=== PATIENT | female | born 1950 | race Caucasian/White ===

== ENCOUNTER → 2019-02-25 | Day surgery (SDC) | payer MEDICARE ==
[~2019-02-25] MED LIST: ASPIRIN81 MG PO; ATENOLOL50 MG PO; BALANCED SALT SOLN (OPTH) 15 ML BTL IO ONE; CALCIUM 500+D1 EACH PO; DAILY VITAMIN1 EAC3 PO; FENTANYL CITRATE/PF 100MCG/2 ML INJ ONE; GLIMEPIRIDE2 MG PO; LASIX40 MG PO; LIDOCAINE 2% /EPINEPHRINE 20 ML SDV INJ ONE; LOSARTAN POTASS25 MG PO; MELOXICAM7.5 MG PO; METFORMIN HCL500 MG PO; MIDAZOLAM HCL 2 MG/2 ML VIAL ONE; MYRBETRIQ50 MG PO; NEOMYCIN/POLYMYXIN/DEX (OPTH) 3.5 GM TUBE ONE; POTASSIUM CHLO20 ME1; POVIDONE IODINE 5% (OPTH) 30 ML BTL ONE; PROPOFOL IV EMULSION 10 MG/ML 20 ML VIAL ONE; SYNTHROID100 MCG PO; TOVIAZ8 MG PO; ULTRACET TABLE1 EACH PO; VICTOZA 2-0.6 MG/0.1 SC; VITAMIN B-121000 MCG PO; VITAMIN D1000 UNI1 PO
--- OUTSIDE RECORDS SUMMARY | 2019-02-25 09:49 | XMS REPORT ---
Author Author [facility] Address Unknown Phone Unavailable Care Team Providers Care Hazardous Materials Waste Technician Name Role Phone CAO, L ROMELIA Unavailable Unavailable Problems This patient has no known problems. Allergies, Adverse Reactions, Alerts This patient has no known allergies or adverse reactions. Medications This patient has no known medications. Results Test Description Test Time Test Comments Text Results Atomic Results Result Comments SCR MAMM BILATERAL YE CAD DIGITAL 2018-05-22 09:37:53 - SCR MAMM BILATERAL YE CAD DIGITALBILATERAL DIGITAL SCREENING MAMMOGRAM 3D/2D WITH CAD: 05/17/2018CLINICAL: Asymptomatic. Digital breast tomosynthesis was performed in addition to routine CC and MLO views. Current mammographic images were evaluated by either a [employer] M-Vu or a [employer] ImageChecker CAD (computer aided detection system). Comparison is made to exams dated 03/03/2016 mammogram, mammogram, and 02/18/2015 mammogram - [facility]. There are scattered fibroglandular tissues in both breasts. No suspicious mass, architectural distortion, malignant type calcification, or lymph node abnormality detected. Breast architecture is stable compared to prior exams.IMPRESSION: NEGATIVEThere is no mammographic evidence of malignancy. Resume annual screening mammography in one year. Kalyn Moraes M.D. ar/penrad:05/22/2018 09:37:53 Horse Buyer: Tracy Her , [facility] sent: BIRADS 1-2 Normal Mammogram BI-RADS: [address] CERVICAL SPINE WO [place] [id number] Patient Name: PRIYANKA SUAREZ MR #: [id number] : 1950 Age/Sex: 66/F Req #: [id number] [facility] Physician: Ordered by: ROMELIA STINSON CUTTER IN Report #: [id number] Location: Room/Bed: Procedure: [id number] CT/CT CERVICAL SPINE WO Exam Date: 05/02/17 Exam Time: 2053 REPORT STATUS: Signed Exams: Head and cervical spine CTs without IV contrast History: Trauma, fall, forehead laceration Comparison studies: None Technique: Axial images were obtained from the brain and cervical spine. Coronal and sagittal images reconstructed from the axial data. Intravenous contrast: None Findings: Head CT: Scalp: Left supraorbital laceration and hematoma with associated subcutaneous emphysema. No hyperdense foreign body. Additional small left lateral frontal soft tissue hematoma. Bones: No fractures, blastic or lytic lesions. Extra-axial spaces: No masses. No fluid collections. Brain sulci: Mildly prominent age appropriate. Ventricles: Normal in size and configuration. No hydrocephalus. Parenchyma: A few scattered hypodensities in the supratentorial white matter are nonsp ecific but most compatible with chronic small vessel ischemic changes. No mass, acute hemorrhage or acute or chronic cortical vascular insults. Sellar/suprasellar region: No abnormalities. Craniocervical junction: The foramen magnum is patent. No Chiari one malformation. Cervical spine CT: Fractures: None. Soft tissues: No gross abnormalities. Atlantoaxial articulation: Intact. Alignment: Mild cervical kyphosis at C5-C6. Minimal anterolisthesis of C4 on C5, C5-C6 and C7 on T1 are most likely degenerative. Cervicomedullary junction: No abnormalities. The foramen magnum is patent. Vertebrae: No infection or neoplasm. Degenerative changes: C2- C3: Mildly degenerated disc. Mild left foraminal stenosis due to uncovertebral moderate left facet arthrosis. Mild right facet arthrosis. No significant canal stenosis. C3-C4: Mildly degenerated disc. Mild canal stenosis due to a disc ossify convex and thickened ligamenta flava. Severe left foraminal stenosis due to uncovertebral arthrosis and severe left facet arthrosis. Mild right facet arthrosis. C4-C5: Mildly degenerated disc. Severe right and moderate left foraminal stenosis due to uncovertebral arthrosis and severe bilateral facet arthrosis. No significant canal stenosis. C5-C6: Moderately degenerated disc. Disc osteophyte complex does not result in canal stenosis. Mild left greater than right foraminal stenosis due to uncovertebral arthrosis and moderate bilateral facet arthrosis. The facets are fused. C6-C7: Moderately degenerated disc. Moderate bilateral foraminal stenosis due to uncovertebral and facet arthrosis. Patent canal. C7-T1: Moderately degenerated disc. Moderate bilateral facet arthrosis. Patent canal and foramina. T1-T2: Mildly degenerated disc. Patent canal and foramina. Incidental findings: Atherosclerotic calcifications in the carotid siphons and left intradural vertebral artery. IMPRESSION: Head CT: 1. Left supraorbital soft tissue hematoma and laceration and additional small left lateral frontal soft tissue hematoma without underlying fracture or retained hyperdense foreign body. 2. No acute intracranial abnormalities. 3. Mild chronic supratentorial microvascular ischemic changes. Cervical spine CT: 1. No cervical spine fracture or acute subluxation. 2. Degenerative changes with multilevel disc degeneration, foraminal stenosis and advanced facet arthrosis. 3. Cannot adequately evaluate ligament, spinal cord and or vascular abnormalities on the basis of this examination. Signed by: Dr. Lucrecia Shaw M.D. on 05/02/2017 9:22 PM Dictated By: LUCRECIA SHAW MD 21 Transcribed By: MICHEL on 05/02/172121 COPY TO: ROMELIA STINSON NP CT BRAIN WO [place] [address] Patient Name: PRIYANKA SUAREZ MR #: [id number] : 1950 Age/Sex: 66/F Req #: [id number] Physician: Ordered by: ROMELIA STINSON NP Report #: [id number] Location: ER Room/Bed: Procedure: [id number] CT/CT BRAIN WO Exam Date: 05/02/17 Exam Time: 2053 REPORT STATUS: Signed Exams: Head and cervical spine CTs without IV contrast History: Trauma, fall, forehead laceration Comparison studies: None Technique: Axial images were obtained from the brain and cervical spine. Coronal and sagittal images reconstructed from the axial data. Intravenous contrast: None Findings: Head CT: Scalp: Left supraorbital laceration and hematoma with associated subcutaneous emphysema. No hyperdense foreign body. Additional small left lateral frontal soft tissue hematoma. Bones: No fractures, blastic or lytic lesions. Extra-axial spaces: No masses. No fluid collections. Brain sulci: Mildly prominent age appropriate. Ventricles: Normal in size and configuration. No hydrocephalus. Parenchyma: A few scattered hypodensities in the supratentorial white matter are nonspecific but most compatible with chronic small vessel ischemic changes. No mass, acute hemorrhage or acute or chronic cortical vascular insults. Sellar/suprasellar region: No abnormalities. Craniocervical junction: The foramen magnum is patent. No Chiari one malformation. Cervical spine CT: Fractures: None. Soft tissues: No gross abnormalities. Atlantoaxial articulation: Intact. Alignment: Mild cervical kyphosis at C5-C6. Minimal anterolisthesis of C4 on C5, C5-C6 and C7 on T1 are most likely degenerative. Cervicomedullary junction: No abnormalities. The foramen magnum is patent. Vertebrae: No infection or neoplasm. Degenerative changes: C2- C3: Mildly degenerated disc. Mild left foraminal stenosis due to uncovertebral moderate left facet arthrosis. Mild right facet arthrosis. No significant canal stenosis. C3-C4: Mildly degenerated disc. Mild canal stenosis due to a disc ossify convex and thickened ligamenta flava. Severe left foraminal stenosis due to uncovertebral arthrosis and severe left facet arthrosis. Mild right facet arthrosis. C4-C5: Mildly degenerated disc. Severe right and moderate left foraminal stenosis due to uncovertebral arthrosis and severe bilateral facet arthrosis. No significant canal stenosis. C5-C6: Moderately degenerated disc. Disc osteophyte complex does not result in canal stenosis. Mild left greater than right foraminal stenosis due to uncovertebral arthrosis and moderate bilateral facet arthrosis. The facets are fused. C6-C7: Moderately degenerated disc. Moderate bilateral foraminal stenosis due to uncovertebral and facet arthrosis. Patent canal. C7-T1: Moderately degenerated disc. Moderate bilateral facet arthrosis. Patent canal and foramina. T1-T2: Mildly degenerated disc. Patent canal and foramina. Incidental findings: Atherosclerotic calcifications in the carotid siphons and left intradural vertebral artery. IMPRESSION: Head CT: 1. Left supraorbital soft tissue hematoma and laceration and additional small left lateral frontal soft tissue hematoma without underlying fracture or retained hyperdense foreign body. 2. No acute intracranial abnormalities. 3. Mild chronic supratentorial microvascular ischemic changes. Cervical spine CT: 1. No cervical spine fracture or acute subluxation. 2. Degenerative changes with multilevel disc degeneration, foraminal stenosis and advanced facet arthrosis. 3. Cannot adequately evaluate ligament, spinal cord and or vascular abnormalities on the basis of this examination. Signed by: Dr. Lucrecia Shaw M.D. on 05/02/2017 9:22 PM Dictated By: LUCRECIA SHAW MD 21 Transcribed By: MICHEL on 05/02/172121 COPY TO: ROMELIA STINSON CUTTER IN
[2019-02-25 13:00] VITALS: BP 130/70
== END | disposition home or self-care (01) ==
LOC: OR 09:38
PROVIDERS: ATTEND Ophthalmology
DX: H02.834 Dermatochalasis of left upper eyelid (principal); H02.831 Dermatochalasis of right upper eyelid; I10 Essential (primary) hypertension; E11.9 Type 2 diabetes mellitus without complications; Z88.8 Allergy status to other drugs, medicaments and biological substances; Z79.82 Long term (current) use of aspirin; Z79.84 Long term (current) use of oral hypoglycemic drugs
CPT/HCPCS: 15823; 36415; 82948; J2001; J2250; J2704; J3010